=== PATIENT | female | born 1960 | race Caucasian/White ===

== ENCOUNTER 2018-04-15 15:10 | Outpatient (CLI) | payer BC ==
--- NOTE | 2018-04-15 17:09 | MRI ---
MRI LUMBAR SPINE WITHOUT CONTRAST: 04/15/2018 HISTORY: Degenerative joint disease of the lumbar spine. Low back pain with right lower extremity radiculopat hy. COMPARISON: None. TECHNIQUE: Multiplanar, multisequence MR imaging of the lumbar spine is obtained without contract. FINDINGS: Sagittal STIR imaging demonstrates no focal area of osseous marrow edema. There is no anterolisthesis or retrolisthesis noted within the lumbar spine. Assuming five lumbar ty pe vertebral bodies, the conus medullaris terminates at the L1 level. T12-L1: Mild bilateral facet hypertrophy. Intervertebral disk height and signal intensity is within normal limits, with no significant central canal or neural foraminal stenosis. L1-L2: Mild bilateral facet hypertrophy. Intervertebral disk height and signal intensity are within normal limits with no significant central canal or neural foraminal stenosis. L2-L3: Moderate bilateral facet hypertrophy, left greater than right. There is disk space narrowing , disk desiccation, and mild disk bulge with mild central canal stenosis. There is mild left neural foraminal stenosis. L3-L4: Moderate bilateral facet hypertrophy and hypertrophy of the ligamentum flavum. There is disk space narrowing and disk desiccation with vacuum disk formation and mild disk bulge. There is mild/ moderate central canal stenosis and mild bilateral neural foraminal stenosis. L4-L5: There is disk space narrowing, disk desiccation, and disk bulge. There is prominent bilatera l facet hypertrophy. There is mild/moderate central canal stenosis. Moderate/severe bilateral neura l foraminal stenosis noted. L5-S1: No significant central canal stenosis. There is facet hypertrophy bilaterally, right greater than left. There is mild right neural foraminal stenosis. No significant left neural foraminal ashleigh nosis. Prominent, incompletely T2 hyperintense lesion noted within the right lobe of the liver, measuring at least 5.7 cm. This cystic lesion within the right lobe of the liver demonstrates a probable thin in ternal septation along its inferior margin. IMPRESSION: 1. Multilevel lumbar spine degenerative change, as described above. 2. Incompletely imaged T2 hyperintense lesion within the right lobe of the liver, measuring up to 5. 7 cm. A cystic lesion is favored, probably septated/mildly complex. An abdominal ultrasound is advi sed for further assessment. CODE T POS: DAT
== END 2018-04-15 15:11 | disposition home or self-care (01) ==
LOC: TBSIIMAG 15:10
PROVIDERS: ATTEND Family Medicine
DX: M51.36 Other intervertebral disc degeneration, lumbar region (principal); M47.816 Spondylosis without myelopathy or radiculopathy, lumbar region; K76.9 Liver disease, unspecified
CPT/HCPCS: 72148

== ENCOUNTER 2018-05-12 06:57 | Outpatient (CLI) | payer BC ==
--- NOTE | 2018-05-12 08:10 | ULT ---
ABDOMINAL ULTRASOUND: DATE: 05/12/2018. PROVIDED CLINICAL HISTORY: Liver mass seen on prior MRI. FINDINGS: The visualized abdominal aorta, IVC, and pancreas appear normal. There is a simple-appearing cyst pr esent within the right hepatic lobe measuring approximately 5.9 cm, correlating with the MRI finding. There is no evidence for solid mass. No evidence for intra- or extrahepatic biliary ductal dilatat ion, common duct measures about 5 mm. The gallbladder demonstrates a small focus of nonmobile, nonshadowing echogenicity adherent to the an terior gallbladder wall measuring about 6-7 mm most likely reflecting a gallbladder polyp. The kidneys demonstrate no hydronephrosis or mass. The spleen is not enlarged and demonstrates no fo annalise abnormality. IMPRESSION: 1. Simple-appearing cyst is seen in the right hepatic lobe corresponding to the MRI finding. No con cerning findings are evident. 2. A 6-7 mm gallbladder wall polyp. Consider sonographic followup. POS: OFF
== END 2018-05-12 06:58 | disposition home or self-care (01) ==
LOC: BICULT 06:57
PROVIDERS: ATTEND Family Medicine
DX: R16.0 Hepatomegaly, not elsewhere classified (principal); K76.89 Other specified diseases of liver; K82.4 Cholesterolosis of gallbladder
CPT/HCPCS: 76700

== ENCOUNTER 2018-11-13 07:33 | Outpatient (CLI) | payer BC ==
--- NOTE | 2018-11-13 09:57 | ULT ---
ABDOMINAL ULTRASOUND: Date: 11/13/18 COMPARISON: 05/12/18 study. HISTORY: Liver mass comparison. FINDINGS: Real-time imaging of the upper abdomen was performed. This shows a normal size gallbladder. There is an echogenic focus along the gallbladder wall suggestive of a small polyp. This measures in the 6 mm range. The liver parenchyma is of increased echogenicity. A right lobe hepatic cyst is again identified, rupali suring approximately 5.0 x 5.7 cm. The spleen is 10.4 cm in size. Right and left kidneys are normal in size and not obstructed. Pancreas is partially obscured. Abdominal aorta and IVC regions appear unremarkable. IMPRESSION: 1. Fatty changes of the liver with a stable appearance to a right lobe hepatic cyst measuring approx imately 5.0 x 5.7 cm. 2. Stable appearance to an approximately 6.0 mm polyp along the anterior gallbladder wall. POS: TPC
== END 2018-11-13 07:34 | disposition home or self-care (01) ==
LOC: ULT 07:33
PROVIDERS: ATTEND Family Medicine
DX: R16.0 Hepatomegaly, not elsewhere classified (principal); K76.0 Fatty (change of) liver, not elsewhere classified
CPT/HCPCS: 76700